=== PATIENT | male | born 1950 | race Caucasian/White ===

== ENCOUNTER 2018-03-14 07:57 | Outpatient (REF) | payer MEDICARE, BC, SELFPAY ==
[2018-03-14 14:02] LABS: Anion Gap 13.2 mmol/L (3-11); BUN 19 mg/dL (7-18); CO2 25.8 mmol/L (21.0-32.0); Calcium 8.9 mg/dL (8.5-10.1); Chloride 104 mmol/L (98-107); Glucose 104 mg/dL (70-100); Potassium 3.6 mmol/L (3.5-5.1); Sodium 143 mmol/L (136-145)
[2018-03-14 14:19] LABS: LDL CHOLESTEROL 89 mg/dL (<100)
[2018-03-15 09:18] LABS: PSA, Screening 0.7 ng/ml (0-4.5)
== END 2018-03-14 08:17 ==
LOC: NCHCN 07:57
PROVIDERS: PCP Family Medicine; Visit Provider Family Medicine
DX: I10 Essential (primary) hypertension (principal); E78.5 Hyperlipidemia, unspecified; R73.01 Impaired fasting glucose; Z12.5 Encounter for screening for malignant neoplasm of prostate
CPT/HCPCS: 80048; 83721; 84153

== ENCOUNTER 2018-03-18 06:28 | Day surgery (SDC) | payer MEDICARE, BC, SELFPAY ==
--- NOTE | 2018-03-17 15:24 | POEE_ITS ---
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 He is previously undergone vitrectomy and membrane peeling of the left eye in July 2012, followed by cataract extraction in December 2012. He also has a history of amblyopia of the right eye. He has developed a moderate nuclear cataract of the right eye with a myopic shift. The option of cataract surgery was offered to the patient and he wished to proceed. NOTE: The Chief Complaint, HPI, Past Medical History, Past Surgical History, Family History, Social History, Medications, and complete Ophthalmic Exam with detailed Assessment and Plan have already been documented in the patient's outpatient ophthalmic record and are not covered again in detail here. PFSH Nuclear sclerotic cataract of right eye (Acute) Primary open angle glaucoma (POAG) of left eye, mild stage (Chronic) History of vitrectomy (Chronic) Status post cataract extraction and insertion of intraocular lens of left eye ( Chronic 12/20/12) Medical History Nuclear sclerotic cataract of right eye (Acute) Primary open angle glaucoma (POAG) of left eye, mild stage (Chronic) Social History Smoking/Tobacco Use Status: Never Surgical History History of vitrectomy (Chronic) Status post cataract extraction and insertion of intraocular lens of left eye ( Chronic 12/20/12) Social History Smoking/Tobacco Use Status: Never Meds Home Medications Medication Instructions Recorded Confirmed Type amlodipine 5 mg PO HS 12/19/12 03/14/18 History aspirin [Aspir 81] 81 mg PO HS 12/19/12 03/14/18 History finasteride 5 mg PO HS 12/19/12 03/14/18 History glucosamine godwin 2KCl-chondroit 2 ea PO DAILY 12/19/12 03/14/18 History [Glucosamine & Chondroitin Cap] hydrocortisone 1 applic TOPICAL BID PRN 12/19/12 07/20/17 History omeprazole [Prilosec] 20 mg PO DAILY 12/19/12 03/14/18 History simvastatin 20 mg PO HS 12/19/12 03/14/18 History brimonidine-timolol [Combigan 1 drp OS BID 07/20/17 03/14/18 History 0.2%-0.5% Eye Drops] ibuprofen 200 - 600 mg PO TID 03/14/18 03/14/18 History losartan-hydrochlorothiazide 1 tab PO DAILY 03/14/18 03/14/18 History Allergies Allergy/AdvReac Type Severity Reaction Status Date / Time No Known Allergies Allergy Unverified 07/20/17 11:09 Exam OCULAR EXAM:: Most recent ophthalmic examination is significant for best corrected visual acuity of 20/40 right eye, 20/25 left eye. Intraocular pressure is 17 OD, 16 OS. Extraocular motility is normal. Slit-lamp examination is significant for a moderate nuclear cataract of 2+ sclerosis in the right eye. There is a well-positioned PCIOL in the left eye with clear posterior capsule. Funduscopic examination reveals disc cupping of 0.7 OD 0.8 OS. The right optic nerve has good color. The left optic nerve has a thin superior and inferior temporal rim with some pallor. Peripheral retina and vitreous is normal. BRIGHTNESS ACUITY TESTING (BAT):: Not performed Assessment and Plan (1) Nuclear sclerotic cataract of right eye: Current visit: No Status: Acute Assessment: Visually significant cataract, right eye. Plan: Cataract extraction with intraocular lens implantation, right eye Note: NOTE:: The details of the planned surgery, including the risks, indications, limitations,expectations,outcome and possible complications were explained to the patient. The patient understands the complications including, but not limited to: infection, hemorrhage, posterior dislocation of the lens or nuclear fragments which may require the intervention of a vitreoretinal surgeon, possible loss of the eye, or from anesthetic complications. The patient has been made aware of the option of not having surgery, that vision following surgery may not be equal to that prior to surgery, and that the planned surgery may not achieve the intended results. Following this discussion, which the patient appeared to understand, the patient wishes to proceed with cataract surgery with lens implantation of the affected eye to improve and maximize vision.
[2018-03-18 06:45] VITALS: BP 147/94; PULSE 68; RESP 16; TEMP 35.9; O2SAT 98
[2018-03-18] MEDS: Tropicam./Phenyleph. (1/2.5%) 5 ML BTL OD ×3 (07:00→07:09)
[2018-03-18] MEDS: Tetracaine 0.5% 4 ML BTL OD ×4 (07:00→07:29)
[2018-03-18] MEDS: Povidone-Iodine Ophth 30 ML BTL (07:29)
[2018-03-18] MEDS: Lidocaine 2% Jelly 6 ML SYR (07:29)
[2018-03-18] MEDS: Lidocaine 1% Pres-Free 5 ML VIAL (07:29)
[2018-03-18] MEDS: Balanced Salt Soln.-PLUS 500 ML BAG (07:44)
--- NOTE | 2018-03-18 07:59 | W.PM.DSUDISC ---
Discharge Plan Discharge Details Reason For Visit: CATARACT OD Attending Provider: Jack Payne Primary Care Provider: Abel Rosado [place] Meds and New Rx's Prescriptions: No Action aspirin [Aspir-81] 81 MG tablet,delayed release (DR/EC) 81 mg PO HS RF: 0 amlodipine 10 MG tablet 5 mg PO HS RF: 0 simvastatin 20 MG tablet 20 mg PO HS RF: 0 omeprazole [Prilosec] 20 MG capsule,delayed release(DR/EC) 20 mg PO DAILY RF: 0 hydrocortisone 30 GM cream 1 applic Topical BID PRNRF: 0 finasteride 5 MG tablet 5 mg PO HS RF: 0 glucosamine godwin 2KCl-chondroit [Glucosamine Sulf-Chondroitin] 1 EACH capsule 2 ea PO DAILY RF: 0 ibuprofen 200 mg Capsule 200 - 600 mg PO TID RF: 0 losartan-hydrochlorothiazide 100-12.5 mg Tablet 1 tab PO DAILY RF: 0 brimonidine-timolol [Combigan] 10 ML drops 1 drp OS BID RF: 0 Discharge Instructions Stand Alone Forms: Post-op Topical Cataract, Harry Valderrama (DSHanny) DS: Diagnosis Discharge Diagnosis (1) Nuclear sclerotic cataract of right eye: Status: Resolved (2) Status post cataract extraction and insertion of intraocular lens of right eye: Status: Chronic
--- NOTE | 2018-03-18 07:59 | W.PM.OP ---
Date of service: 03/18/18 Time of Service: 08:00 Operative Note DATE OF PROCEDURE: 03/18/18 PRE-OP DIAGNOSIS: Cataract, right eye POST-OP DIAGNOSIS: same SURGEON: Jack Payne ANESTHESIA: MAC and local (sub-tenon's anesthetic infiltration) PATHOLOGY: none sent COMPLICATIONS: None Patient was transported to: same day Patient's condition: stable Implants: Marty [employer] Marty [employer] / [employer] Tecnis [id number] Indications: Progressive decreased vision due to cataract, right eye Procedure Description: CATARACT SURGERY OPERATIVE REPORT PREOPERATIVE DIAGNOSIS: Nuclear cataract, right eye POSTOPERATIVE DIAGNOSIS: Same OPERATION: Cataract extraction using phacoemulsification with posterior chamber intraocular lens implant, right eye. IOL: IOL Medical Data Entry Clerk/Model: J&J Vision / BRIDGER Tecnis ZCB00 IOL Power: + 18.50 diopters IOL Serial Number: [id number] Optic Diameter: 6.0mm Haptic/Overall Diameter: 13.0mm PHACO INFO: Damian [employer]urion Vision System with OZil and Active Fluidics Cumulative Dispersed Energy (CDE): 10.03 seconds SURGEON: Jack Payne MD, DAFNE ANESTHESIA: Monitored Anesthesia Care (MAC), with local sub-tenon's anesthetic infiltration COMPLICATIONS: None SPECIMENS: None INDICATIONS FOR PROCEDURE: The patient is a 67-year-old male with history of vitrectomy and membrane peeling of the left eye in 2012 with subsequent cataract surgery. He is now being treated for a glaucoma in the left eye. He has developed a moderate nuclear cataract in the right eye and desires cataract surgery there and attempt to improve and maximize his vision. PROCEDURE: The correct surgical eye was identified and marked as the right eye and the pupil was dilated in the preoperative area using mydriatics and cycloplegics. The dilated pupil size was 7.0 mm. Oral sedation was administered in the form of an Imprimis MKO Melt (midazolam 3mg/ketamine 25mg/ondansetron 2mg). The patient was brought to the operating room where cardiopulmonary monitoring was instituted and surgical time-out was performed, confirming the correct operative eye and IOL power. Topical anesthesia was administered and ophthalmic povidone-iodine 5% was instilled into the conjunctival fornices. Lidocaine gel was applied to the cornea and the melecio-ocular area was prepped with Betadine 10% solution and draped in the usual sterile fashion for intraocular surgery, including an aperture drape. A Tegaderm transparent film dressing was cut in half and used to cover the lashes and lid margins. Care was taken to sequester the lashes and lid margins under the Tegaderm dressing. A lid speculum was placed between the lids of the operative eye and the Trini-Jere operating microscope was maneuvered into position. Munir scissors were then used to make a conjunctival buttonhole approximately 6mm posterior to the limbus in the inferonasal quadrant. Blunt dissection was carried out to expose bare sclera, and a blunt-tipped sub-tenon?s anesthesia cannula was introduced and passed posteriorly along the globe where non-preserved plain lidocaine was injected into posterior sub-Tenon?s space. A sideport knife was used to make a paracentesis port at the 7:00 postion and the anterior chamber was filled with Healon GV. A 2.4mm keratome knife was used to create a half-thickness groove at the limbus and then to construct a three-plane near-clear corneal tunnel extending 2.0mm into clear cornea at the 10:00 position. A flap was raised on the anterior capsule and capsulorhexis forceps were used to complete a continuous curvilinear capsulorhexis of 5.5 mm. Balanced salt solution was then used to perform cortical cleaving hydrodissection and nuclear hydrodelineation until the lens could be freely rotated within the capsular bag. The lens nucleus was then disassembled and removed within the capsular bag and iris plane using phacoemulsification. Residual cortical material was removed using the 45-degree angled silicone I/A tip with 0.3mm port. The posterior capsule was carefully polished to remove as much residual lens epithelial cells as safely possible. The capsular bag was then inflated and the anterior chamber deepened with viscoelastic. The lens implant described above was inserted into the capsular bag using the BRIDGER [place] Injector. A Kuglen hook was used to dial the IOL into position. Residual viscoelastic was then removed first from posterior to the IOL, then from the anterior chamber using the I/A handpiece. The lens implant was noted to center nicely within the capsular bag. The incisions were stromally hydrated, and the anterior chamber was reformed using BSS. Then 0.4cc of moxifloxacin 1.5mg/ml were injected into the capsular bag and anterior chamber. The incisions were checked with a Weck spear and found to be secure. Several drops of ophthalmic povidone-iodine 5% were then applied to the eye followed by two drops of Imprimis combination moxifloxacin/dexamethasone solution. The drapes were removed and a clear plastic protective eye shield was placed over the eye. The patient was then returned to Same Day Surgery in stable condition.
--- NOTE | 2018-03-18 08:02 | ROE_ITS ---
Date of service: 03/18/18 Time of Service: 08:00 Operative Note DATE OF PROCEDURE: 03/18/18 PRE-OP DIAGNOSIS: Cataract, right eye POST-OP DIAGNOSIS: same SURGEON: Jack Payne ANESTHESIA: MAC and local (sub-tenon's anesthetic infiltration) PATHOLOGY: none sent COMPLICATIONS: None Patient was transported to: same day Patient's condition: stable Implants: Marty and Marty Vision / [employer] Tecnis [id number] Indications: Progressive decreased vision due to cataract, right eye Procedure Description: CATARACT SURGERY OPERATIVE REPORT PREOPERATIVE DIAGNOSIS: Nuclear cataract, right eye POSTOPERATIVE DIAGNOSIS: Same OPERATION: Cataract extraction using phacoemulsification with posterior chamber intraocular lens implant, right eye. IOL: IOL Chief Nurse Executive/Model: J&J Vision / BRIDGER Tecnis ZCB00 IOL Power: + 18.50 diopters IOL Serial Number: [id number] Optic Diameter: 6.0mm Haptic/Overall Diameter: 13.0mm PHACO INFO: Damian [employer]urion Vision System with OZil and Active Fluidics Cumulative Dispersed Energy (CDE): 10.03 seconds SURGEON: Jack Payne MD, DAFNE ANESTHESIA: Monitored Anesthesia Care (MAC), with local sub-tenon's anesthetic infiltration COMPLICATIONS: None SPECIMENS: None INDICATIONS FOR PROCEDURE: The patient is a 67-year-old male with history of vitrectomy and membrane peeling of the left eye in 2012 with subsequent cataract surgery. He is now being treated for a glaucoma in the left eye. He has developed a moderate nuclear cataract in the right eye and desires cataract surgery there and attempt to improve and maximize his vision. PROCEDURE: The correct surgical eye was identified and marked as the right eye and the pupil was dilated in the preoperative area using mydriatics and cycloplegics. The dilated pupil size was 7.0 mm. Oral sedation was administered in the form of an Imprimis MKO Melt (midazolam 3mg/ketamine 25mg/ ondansetron 2mg). The patient was brought to the operating room where cardiopulmonary monitoring was instituted and surgical time-out was performed, confirming the correct operative eye and IOL power. Topical anesthesia was administered and ophthalmic povidone-iodine 5% was instilled into the conjunctival fornices. Lidocaine gel was applied to the cornea and the melecio-ocular area was prepped with Betadine 10% solution and draped in the usual sterile fashion for intraocular surgery, including an aperture drape. A Tegaderm transparent film dressing was cut in half and used to cover the lashes and lid margins. Care was taken to sequester the lashes and lid margins under the Tegaderm dressing. A lid speculum was placed between the lids of the operative eye and the Trini-Jere operating microscope was maneuvered into position. Munir scissors were then used to make a conjunctival buttonhole approximately 6mm posterior to the limbus in the inferonasal quadrant. Blunt dissection was carried out to expose bare sclera, and a blunt-tipped sub-tenon? s anesthesia cannula was introduced and passed posteriorly along the globe where non-preserved plain lidocaine was injected into posterior sub-Tenon?s space. A sideport knife was used to make a paracentesis port at the 7:00 postion and the anterior chamber was filled with Healon GV. A 2.4mm keratome knife was used to create a half-thickness groove at the limbus and then to construct a three-plane near-clear corneal tunnel extending 2.0mm into clear cornea at the 10:00 position. A flap was raised on the anterior capsule and capsulorhexis forceps were used to complete a continuous curvilinear capsulorhexis of 5.5 mm. Balanced salt solution was then used to perform cortical cleaving hydrodissection and nuclear hydrodelineation until the lens could be freely rotated within the capsular bag. The lens nucleus was then disassembled and removed within the capsular bag and iris plane using phacoemulsification. Residual cortical material was removed using the 45-degree angled silicone I/A tip with 0.3mm port. The posterior capsule was carefully polished to remove as much residual lens epithelial cells as safely possible. The capsular bag was then inflated and the anterior chamber deepened with viscoelastic. The lens implant described above was inserted into the capsular bag using the BRIDGER [place] Injector. A Kuglen hook was used to dial the IOL into position. Residual viscoelastic was then removed first from posterior to the IOL, then from the anterior chamber using the I/A handpiece. The lens implant was noted to center nicely within the capsular bag. The incisions were stromally hydrated , and the anterior chamber was reformed using BSS. Then 0.4cc of moxifloxacin 1.5mg/ml were injected into the capsular bag and anterior chamber. The incisions were checked with a Weck spear and found to be secure. Several drops of ophthalmic povidone-iodine 5% were then applied to the eye followed by two drops of Imprimis combination moxifloxacin/dexamethasone solution. The drapes were removed and a clear plastic protective eye shield was placed over the eye. The patient was then returned to Same Day Surgery in stable condition.
[2018-03-18 08:40] VITALS: BP 149/88; PULSE 73; RESP 14; TEMP 36.9; O2SAT 92
== END 2018-03-18 08:35 | disposition home or self-care (01) ==
LOC: SUR 06:28
PROVIDERS: PCP Family Medicine; Visit Provider Ophthalmology
PROC: (CPT 66984; principal; 2018-03-18 07:30)
DX: H25.11 Age-related nuclear cataract, right eye (principal); I10 Essential (primary) hypertension; K21.9 Gastro-esophageal reflux disease without esophagitis
CPT/HCPCS: 66984; V2632

== ENCOUNTER 2019-02-26 14:10 | Outpatient (REF) | payer MEDICARE, BC, SELFPAY ==
[2019-02-26 15:31] LABS: Anion Gap 8.5 mmol/L (3-11); BUN 16 mg/dL (7-18); CO2 30.5 mmol/L (21.0-32.0); CREATININE 1.04 mg/dL (0.70-1.30); Chloride 107 mmol/L (98-107); Glucose 105 mg/dL (70-100); LDL CHOLESTEROL 91 mg/dL (<100); Potassium 4.6 mmol/L (3.5-5.1); Sodium 146 mmol/L (136-145)
[2019-02-26 15:59] LABS: Hemoglobin A1C 5.4 % (4.5-6.2)
== END 2019-02-26 14:30 ==
LOC: NCHCN 14:10
PROVIDERS: PCP Family Medicine; Visit Provider Family Medicine
DX: I10 Essential (primary) hypertension (principal); R73.01 Impaired fasting glucose; E78.5 Hyperlipidemia, unspecified
CPT/HCPCS: 80048; 83721; 83036

== ENCOUNTER 2020-03-01 07:49 | Outpatient (REF) | payer MEDICARE, BC, SELFPAY ==
[2020-03-01 20:30] LABS: Anion Gap 5.6 mmol/L (3-11); BUN 16 mg/dL (7-18); CO2 32.4 mmol/L (21.0-32.0); CREATININE 0.99 mg/dL (0.70-1.30); Calcium 8.8 mg/dL (8.5-10.1); Chloride 105 mmol/L (98-107); Glucose 92 mg/dL (74-106); Potassium 3.9 mmol/L (3.5-5.1); Sodium 143 mmol/L (136-145)
== END 2020-03-01 08:09 ==
LOC: NCHCN 07:49
PROVIDERS: PCP Family Medicine; Visit Provider Family Medicine
DX: I10 Essential (primary) hypertension (principal)
CPT/HCPCS: 80048

== ENCOUNTER 2021-03-07 18:05 | Outpatient (REF) | payer MEDICARE, BC, SELFPAY ==
[2021-03-07 16:51] LABS: Hemoglobin A1C 5.4 % (<5.7)
[2021-03-07 17:06] LABS: Vitamin D 25 Total 46.5 ng/mL (30-100)
[2021-03-07 17:08] LABS: Anion Gap 8.2 mmol/L (3-11); BUN 20 mg/dL (7-18); CO2 31.8 mmol/L (21.0-32.0); CREATININE 1.1 mg/dL (0.70-1.30); Calculated LDL 82 mg/dL (<100); Chloride 105 mmol/L (98-107); Cholesterol 133 mg/dL (<200); Glucose 105 mg/dL (74-106); HDL Cholesterol 38 mg/dL (40-60); Potassium 4.1 mmol/L (3.5-5.1); Sodium 145 mmol/L (136-145); Triglyceride 65 mg/dL (<150)
== END 2021-03-07 18:06 | disposition home or self-care (01) ==
LOC: NCHCN 18:05
PROVIDERS: PCP Family Medicine; Visit Provider Family Medicine
DX: I10 Essential (primary) hypertension (principal); R73.01 Impaired fasting glucose; E55.9 Vitamin D deficiency, unspecified; E78.5 Hyperlipidemia, unspecified
CPT/HCPCS: 80048; 80061; 82306; 83036

== ENCOUNTER 2021-11-23 16:53 | Outpatient (REF) | payer MEDICARE, BC, SELFPAY ==
--- NOTE | 2021-11-23 16:10 | SKI_PTH ---
PATIENT: Hunter Wood LOC: [facility]#:[id number] AGE/SX: 71/M ROOM: RE11/23/[address]: Clayton Matthew : 1950 BED: DIS: 11/23/2021 SPEC #: [id number] RECD: 11/23/21 18:37 STATUS: RICHI REQ #: [id number] ELEANOR: 11/23/21 16:[address]: Clayton Matthew DEPT: Surgical Specimen RECD BY: Kenya May ENTERED: 11/23/21 18:37 SP TYPE: PAVEL MCCULLOUGH DR: Abel Rosado Tissues: 1 - SKIN BIOPSY(SHAVE/PUNCH) Procedures: SKIN LEVEL 4 Comments: [id number]
== END 2021-11-23 16:54 | disposition home or self-care (01) ==
LOC: NCHCN 16:53
PROVIDERS: PCP Family Medicine; Visit Provider Physician Assistant
DX: L30.8 Other specified dermatitis (principal)
CPT/HCPCS: 88305

== ENCOUNTER → 2021-12-23 09:46 | Outpatient (BNVA) | payer MEDICARE, BC, SELFPAY | PROVIDERS: PCP Family Medicine; Referring Provider Family Medicine; Visit Provider Surgery | DX: Z12.11 Encounter for screening for malignant neoplasm of colon (principal) ==

== ENCOUNTER 2022-01-09 07:38 | Day surgery (SDC) | payer MEDICARE, BC, SELFPAY ==
--- NOTE | 2022-01-09 06:41 | W.COLOREPORT ---
Colonoscopy Report Date of procedure: 01/09/22 Pre-op diagnosis general: Colon Cancer Screening Post-op diagnosis procedure note: other (polyps and diverticulosis) Procedure: Colonoscopy with polypectomy Surgeon: Marylin Coleman Anesthesia Type: General:No Airway Estimated blood loss (mL): 3 Pathology: other (ascending x1, transverse x1 and rectal polyps x2) Complications: None Disposition: same day Indications: The patient? is a pleasant 71-year-old male who is here to discuss another screening colonoscopy. ? His last colonoscopy was in 2011 and was normal.? He denies any changes in bowel habits, melena, hematochezia, unintentional weight loss or family history of colon cancer.? The procedure and risks were discussed.? The prep was reviewed in detail.? Risks, benefits and complications have been reviewed. Complications include but are not limited to bleeding, pain, perforation, missed small lesion/polyp, sore throat, aspiration and adverse reaction to the medications. Questions were entertained and answered to their satisfaction and they wished to proceed. No guarantees were given or implied. Prep: Miralax/Dulcolax Procedure Start Time: : Procedure End Time: : Retraction Time: 8 minutes Findings: 4 small polyps mild sigmoid diverticulosis Procedure Description: After informed consent was obtained the patient was taken to the procedure room and placed in a left decubitous position. Monitors were applied and a time out was done. The patients name, date of , procedure, allergies to medications and metal in their body was reviewed. The patient was then sedated. Once sedated and comfortable a rectal exam was done. External exam was normal. Internal exam revealed a normal sphincter tone and no palpable masses. The prostate felt smooth and enlarged. The scope was then introduced and retro-flexed. No internal hemorrhoids, polyps or masses were identified on retro-flexion. The scope was then advanced to the cecum without difficulty. The ileocecal vlave and appendiceal orifice were identified. The prep was good. The scope was then slowly retracted over 8 minutes back into the rectum. Polyps were removed at with cold forceps in the ascending colon x1, transverse x1 and rectum x2. There was mild sigmoid diverticulosis noted. The scope was removed and the patient was woken up and taken back to Same day surgery in stable condition. The patient tolerated the procedure well and there were no immediate complications. Follow up: The patient should follow up in 5 years unless they develop changes in bowel habits or other new gastrointestinal complaints.
--- NOTE | 2022-01-09 06:42 | W.PM.DSUDISC ---
Discharge Plan Disposition Patient Disposition: HOME Condition: Good Discharge Details Reason For Visit: colonoscopy Attending Provider: Marylin Coleman Primary Care Provider: Abel Rosado Home Meds and New Rx's Prescriptions: Continued amlodipine 10 mg tablet 10 mg PO HS losartan-hydrochlorothiazide 100-25 mg tablet 1 tab PO DAILY fluocinonide 0.05 % solution 1 applic topical BID simvastatin 20 MG tablet 20 mg PO HS omeprazole [Prilosec] 20 MG capsule,delayed release(DR/EC) 20 mg PO DAILY hydrocortisone 30 GM cream 1 applic Topical BID PRN finasteride 5 MG tablet 5 mg PO HS Glucosamine Sulf-Chondroitin 1 EACH capsule 2 ea PO DAILY ibuprofen 200 mg Capsule 200 - 600 mg PO TID brimonidine-timolol [Combigan] 10 ML drops 1 drp OS BID Discontinued bisacodyl [Dulcolax (bisacodyl)] 5 mg tablet,delayed release (DR/EC) 5 mg PO ONCE Qty: 4 0RF polyethylene glycol 3350 17 gram/dose powder 17 g PO ONCE Qty: 238 0RF Discharge Instructions Instructions: Colorectal Polyps (DC), Diverticulosis (DC) Additional Instructions: Findings: 4 small polyps and diverticlosis Follow up: 5 years Please call if you develop: fevers >101.5 Nausea or Vomiting Abdominal pain that is not transient Rectal bleeding that is more then a tbsp A hard abdomen and inability to pass gas DAY SURGERY UNIT POST ENDOSCOPY INSTRUCTIONS Instructions for everyone who is given Anesthesia: For your safety, please do the following for the next 24 Hours: a. Do not drive or operate dangerous equipment b. Do not drink alcohol beverages or use any recreational drugs for the first 24 hours or while taking pain medications. The medications in your body may have a reaction that can be dangerous. c. Do not make any important decisions or sign any important papers 1. Generally there are no restrictions on your activity after a day or so has gone by, but you may feel a bit fatigued for a few days. 2. After you arrive home you may have a light meal and return to a normal diet as you can tolerate it without feeling sick to your stomach. 3. After surgery, you may feel pain or discomfort. This should be only transient, but if it persists please contact your doctor. 4. If there are any questions regarding the findings of your procedure, please feel free to contact your doctor. 6. If you are unable to contact your doctor with a problem, contact the hospital at [phone]. 7. Continue all your regular medications unless directed otherwise. I understand the above instructions and have no questions. Signature of Patient or Responsible Adult Escort Date/Time Name of Responsible Adult Escort Signature of Nurse Date/Time Activity:: Activity as Tolerated Diet:: high fiber diet Discharge Orders Discharge Orders: Discharge Order (Routine); Ordered 01/09/22 Ordered By: Marylin Coleman
[2022-01-09 08:11] VITALS: BP 108/78; PULSE 72; RESP 16; TEMP 36.3; O2SAT 98
--- NOTE | 2022-01-09 08:25 | ANES.PREOP_ITS ---
General Info Date of Service Date Performed: 01/09/22 Height: 5 ft 5 in Weight: 80.6 kg Body Mass Index (BMI): 29.5 Surgical Procedure: Operation Date: 01/09/22 09:50 Proposed Procedure Side Surgeon osbaldo Coleman MD Meds Allergies and Home Medications Allergies Allergy/AdvReac Type Severity Reaction Status Date / Time No Known Allergies Allergy Verified 01/09/22 08:17 Home Medication Medication Instructions Recorded finasteride 5 mg tablet 5 mg PO HS 12/19/12 glucosamine sulfate dipotassium Cl 2 ea PO DAILY 12/19/12 500 mg-chondroitin 400 mg capsule (Glucosamine Sulfate 2 KCL-Chondroitin) hydrocortisone 2.5 % topical cream 1 applic topical BID PRN 12/19/12 omeprazole 20 mg capsule,delayed 20 mg PO DAILY 12/19/12 release (Prilosec) simvastatin 20 mg tablet 20 mg PO HS 12/19/12 brimonidine 0.2 %-timolol 0.5 % 1 drp OS BID 07/20/17 eye drops (Combigan) ibuprofen 200 mg capsule 200 - 600 mg PO TID 03/14/18 amlodipine 10 mg tablet 10 mg PO HS 03/31/21 fluocinonide 0.05 % topical 1 applic topical BID 03/31/21 solution losartan 100 1 tab PO DAILY 03/31/21 mg-hydrochlorothiazide 25 mg tablet bisacodyl 5 mg tablet,delayed 5 mg PO ONCE #4 tabs 12/23/21 release (Dulcolax (bisacodyl)) polyethylene glycol 3350 17 17 g PO ONCE #238 grams 12/23/21 gram/dose oral powder Current Visit Medications: Current Medications Generic Name Dose Route Start Last Admin Trade Name Freq PRN Reason Stop Dose Admin Hyoscyamine Sulfate 0.125 mg 01/09/22 06:42 Hyoscyamine 0.125 Mg Sl/Oral/Chew SL DIRECTED PRN Ringer's Solution 1,000 mls @ 80 mls/hr 01/09/22 06:00 IV 02/05/22 23:59 [facility]ION [facility] IV Miscellaneous Supplies 1 each 01/09/22 06:00 Iv Access IV 02/05/22 23:59 DIRECTED MAGDALENO Ondansetron HCl 4 mg 01/09/22 06:42 Ondansetron 4 Mg/2 Ml Vial IVP Q4H PRN PRN Nausea / Vomiting Sodium Chloride 0 ml 01/09/22 06:00 Normal Saline Flush 10 Ml Syr IV 02/05/22 23:59 PRN PRN Sodium Chloride 0 ml 01/09/22 06:00 Normal Saline 10 Ml Vial IJ 02/05/22 23:59 DIRECTED PRN Sterile Water 0 ml 01/09/22 06:00 Water,Injection,Sterile 10 Ml Vial IJ 02/05/22 23:59 DIRECTED PRN PFSH Active Problems Active Problems: Problem Status Onset Code Screening for colon cancer Z12.11 Hypertension I10 Impaired fasting glucose R73.01 Osteoarthritis of knees, bilateral M17.0 BMI 32.0-32.9,adult Z68.32 GERD (gastroesophageal reflux disease) K21.9 Psoriasis L40.9 Vitamin D deficiency E55.9 Medical History Medical History (Updated 01/09/22 @ 08:19 by Octavia Do RN) ACL (anterior cruciate ligament) tear BPH (benign prostatic hyperplasia) History of shingles Hyperlipidemia Nuclear sclerotic cataract of right eye Primary open angle glaucoma (POAG) of left eye, mild stage Sacral back pain Surgical History Surgical History History of vitrectomy Status post cataract extraction and insertion of intraocular lens of left eye (12/20/12) Status post cataract extraction and insertion of intraocular lens of right eye (03/18/18) Tobacco Smoking/Tobacco Use Status: Never Alcohol Alcohol Intake: current Alcohol intake frequency: a few times a week Alcohol type: beer Substance Use Substance use: Never Substance use type: does not use Vital Signs and Lab Results Vital Signs Most Recent Vital Signs in EMR: Most Recent Vital Signs Temp Pulse Resp BP Pulse Ox 36.3 C L 72 16 108/78 98 01/09/22 08:11 01/09/22 08:11 01/09/22 08:11 01/09/22 08:11 01/09/22 08:11 Lab Results Blood Type / Crossmatch: No Data to Display Complete Blood Count: No Data to Display Complete Metabolic Panel: No Data to Display Liver Function Panel: No Data to Display Coagulation Panel: No Data to Display Cardiac Panel: No Data to Display Arterial Blood Gas: No Data to Display Venous Blood Gas: No Data to Display Pancreas Panel: No Data to Display Thyroid Panel: No Data to Display Infectious Disease: No Data to Display Blood Cultures: No Data to Display Toxicology Panel: No Data to Display Anesthesia Assessment and Plan Anesthesia History Personal History: No History of Anesthesia Complications Family History: No Family History of Anesthesia Complications Exercise Tolerance Exercise Tolerance: Metabolic Equivalents>4 Pertinent Negatives Pertinent Negatives: No Symptoms of GERD (Controlled with meds), No Major Cardiovascular Symptoms or Complaints, No Major Pulmonary Symptoms or Complaints and No History of CVA/TIA Cardiac & Pulmonary Exam Cardiac Exam: Normal S1/S2 Heart Sounds Pulmonary Exam: Clear Bilateral Breath Sounds Implantable Cardiac Device Does patient have a Pacemaker or an ICD?: No Airway Exam Known Difficult Airway: No Mallampati Class: 3 Mouth Opening: Normal (> 3cm) Thyromental Distance: Greater than 3 cm Neck Range of Motion: Full ROM Neck Circumference: Normal Teeth Condition: Normal Dentition ASA Classification ASA Score: ASA 2 Emergency Case?: No NPO Status NPO Status: NPO Clears >2 hours, Solids >8 hours Anesthesia Plan Resuscitation Status: Full Code Anesthesia Technique: General Anesthesia Airway Planned: Natural Airway Monitors Used: Standard Monitors
[2022-01-09] MEDS: Lactated Ringers 1,000 ML 80 ML IV (08:33)
[2022-01-09 08:54] VITALS: BMI 29.5
--- NOTE | 2022-01-09 09:11 | BOWEL_PTH ---
PATIENT: Hunter Wood LOC: [facility] U#:[id number] AGE/SX: 71/M ROOM: RE01/09/[address]: Marylin Coleman MD : [id number] BED: DIS: 01/09/2022 SPEC #: [id number] RECD: 01/09/22 12:25 STATUS: RCIHI REQ #: [id number] ELEANOR: 01/09/22 09:[address]: Marylin Coleman DEPT: Surgical Specimen RECD BY: Kenya May ENTERED: 01/09/22 12:26 SP TYPE: Bowel OTHR DR: Abel Rosado Tissues: 1 - BIOPSY BOWEL 2 - BIOPSY BOWEL 3 - BIOPSY BOWEL Procedures: GROSS AND MICRO LEVEL 4 Comments: [id number]
[2022-01-09 09:29] VITALS: BP 114/68; PULSE 66; RESP 16; TEMP 36.2; O2SAT 94
--- NOTE | 2022-01-09 09:47 | W.ANESPOSTOP ---
Postoperative Evaluation Date, Time and Location Date Performed: 01/09/22 Time Performed: : Patient Location: Day Surgery Unit Vital Signs Most Recent Imported Vital Signs: Most Recent Vital Signs Temp Pulse Resp BP Pulse Ox 36.2 C L 66 16 114/68 94 01/09/22 09:29 01/09/22 09:29 01/09/22 09:29 01/09/22 09:01/09/22 09:29 Pain Score Most Recent Pain Score: Most Recent Pain Score Pain Level 0 01/09/22 09:29 Assessment Mental Status: Awake (Alert & Oriented to Patient Baseline) Airway and Respiratory Function: Patent airway with normal (patient baseline) respiratory exam Cardiovascular Function: Hemodynamically Stable Hydration Status: Adequately Hydrated Nausea & Vomiting: No Nausea or Vomiting Pain: Pt. Denies Any Pain Peripheral Nerve Block: Patient did not receive a nerve block
[2022-01-09 10:05] VITALS: BP 136/85; PULSE 62; RESP 16; TEMP 36.3; O2SAT 96
== END 2022-01-09 10:23 | disposition home or self-care (01) ==
PROVIDERS: PCP Family Medicine; Visit Provider Surgery
PROC: 0DJD8ZZ Inspection of Lower Intestinal Tract, Via Natural or Artificial Opening Endoscopic (ICD-10-PCS; CPT 45378; principal; 2022-01-09 09:45)
DX: Z12.11 Encounter for screening for malignant neoplasm of colon (principal); K63.5 Polyp of colon; K57.30 Diverticulosis of large intestine without perforation or abscess without bleeding; K62.1 Rectal polyp; K63.89 Other specified diseases of intestine
CPT/HCPCS: 45380; 88305

== ENCOUNTER 2022-03-16 16:00 | Outpatient (REF) | payer MEDICARE, BC, SELFPAY ==
[2022-03-16 16:04] LABS: Abs Immature Grans 0.03 10^3/uL (0.0-0.06); Absolute Basophil Count 0.04 10^3/uL (0.0-0.2); Absolute Eosinophil Count 0.11 10^3/uL (0.0-0.7); Absolute Monocyte Count 0.63 10^3/uL (0.1-0.8); Absolute Neutrophil Count 5.89 10^3/uL (1.2-6.7); Basophils % 0.5; Eosinophils % 1.4; HCT 48.4 % (40.0-50.0); HGB 16.2 g/dL (13.5-17.5); Immature Grans % 0.4; Lymphocytes % 16.3; MCH 28.6 pg (27.0-33.0); MCHC 33.5 % (32.0-36.0); MCV 85 fL (80-95); MPV 10.3 fL (8.0-11.0); Monocytes % 7.9; Neutrophils % 73.5; Platelet Count 229 10^3/uL (130-400); RBC 5.67 10^6/uL (4.36-5.78); RDW 12.9 % (11.8-14.1); RDW-SD 39.8 fL
[2022-03-16 16:25] LABS: ALT 20 U/L (16-63); AST 15 U/L (15-37); Albumin 3.7 g/dL (3.4-5.0); Alkaline Phosphatase 87 U/L (46-116); Anion Gap 4.1 mmol/L (3-11); BUN 22 mg/dL (7-18); Bilirubin, Total 0.5 mg/dL (0.2-1.0); CO2 33.9 mmol/L (21.0-32.0); CREATININE 1.1 mg/dL (0.70-1.30); Calcium 9.2 mg/dL (8.5-10.1); Calculated LDL 92 mg/dL (<100); Chloride 103 mmol/L (98-107); Cholesterol 149 mg/dL (<200); Estimated GFR 70.88 (mL/min/1.73m2); Glucose 111 mg/dL (74-106); HDL Cholesterol 42 mg/dL (40-60); Sodium 141 mmol/L (136-145); Total Protein 6.8 g/dL (6.4-8.2); Triglyceride 76 mg/dL (<150)
[2022-03-16 16:46] LABS: Vitamin D 25 Total 42.2 ng/mL (30-100)
== END 2022-03-16 16:01 | disposition home or self-care (01) ==
LOC: NCHCN 16:00
PROVIDERS: PCP Family Medicine; Visit Provider Family Medicine
DX: Z00.00 Encounter for general adult medical examination without abnormal findings (principal)
CPT/HCPCS: 80053; 80061; 82306; 85025

== ENCOUNTER 2022-03-20 13:25 | Outpatient (REF) | payer MEDICARE, BC, SELFPAY ==
[2022-03-20 15:08] LABS: Bilirubin Negative (Negative); Blood Negative (Negative); Clarity Clear (Clear); Glucose Negative (Negative); Ketones Negative (Negative); Leukocyte Esterase Negative (Negative); Nitrite Negative (Negative); Urobilinogen 0.2 EU/dL (Up TO 0.2)
== END 2022-03-20 13:26 | disposition home or self-care (01) ==
LOC: NCHCN 13:25
PROVIDERS: PCP Family Medicine; Visit Provider Family Medicine
DX: R10.9 Unspecified abdominal pain (principal)
CPT/HCPCS: 81003

== ENCOUNTER 2022-12-19 13:32 | Outpatient (REF) | payer MEDICARE, BC, SELFPAY ==
[2022-12-19 16:09] LABS: Anion Gap 4.2 mmol/L (3-11); BUN 15 mg/dL (7-18); CO2 32.8 mmol/L (21.0-32.0); CREATININE 0.9 mg/dL (0.70-1.30); Chloride 103 mmol/L (98-107); Estimated GFR 89.62 (mL/min/1.73m2); Glucose 94 mg/dL (74-106); Magnesium 1.9 mg/dL (1.8-2.4); Potassium 4.4 mmol/L (3.5-5.1); Sodium 140 mmol/L (136-145)
[2022-12-19 16:55] LABS: Hemoglobin A1C 5.3 % (<5.7)
== END 2022-12-19 13:33 | disposition home or self-care (01) ==
LOC: NCHCN 13:32
PROVIDERS: PCP Family Medicine; Visit Provider Family Medicine
DX: R73.03 Prediabetes (principal); I49.3 Ventricular premature depolarization; I10 Essential (primary) hypertension
CPT/HCPCS: 80048; 83036; 83735

== ENCOUNTER → 2023-04-17 19:42 | Outpatient (CLI) | payer MEDICARE, BC, SELFPAY ==
--- NOTE | 2023-04-17 | DI.RAD_ITS ---
Exam(s) XR CHEST 2V PA LATERAL EXAM: XR CHEST 2V PA LATERAL CLINICAL HISTORY: R05.3 Chronic cough TECHNIQUE: 2D digital imaging was performed. COMPARISON: CR CHEST 2 VIEWS PA,LAT from 05/02/2010 FINDINGS: HEART: Normal size. Aorta: Not dilated. PULMONARY VASCULATURE: Normal. LUNGS: Clear. PLEURAL SPACE: No pleural effusion or pneumothorax. BONE:Unremarkable for age. Soft tissues: Unremarkable. IMPRESSION: No acute abnormality. DATA REPOSITORY: RADIATION DOSE DELIVERED:
== END ==
PROVIDERS: PCP Family Medicine; Visit Provider Nurse Practitioner Family
DX: R05.9 Cough, unspecified (principal)
CPT/HCPCS: 71046

== ENCOUNTER → 2023-06-19 00:52 | Outpatient (CLI) | payer MEDICARE, BC, SELFPAY ==
--- NOTE | 2023-06-19 10:00 | DI.MRI_ITS ---
Exam(s) MR LUMBAR SPINE WO EXAM: MR LUMBAR SPINE WO CLINICAL HISTORY: LUMBAR RADICULOPATHY,M54.16, LT LEG PAIN,M79.605,NEUROGENIC CLAUDICATION,. TECHNIQUE: Multiplanar multisequence MRI of the Lumbar spine was performed. COMPARISON: CT UPPER ABD W/WO CONTRAST(P) from 09/17/2009 FINDINGS: Bones: The last intervertebral disc space is designated the L5/S1 level for the numbering purpose of this examination. The vertebral body heights are well maintained. There is a mild left convex lumba r scoliosis. There are endplate degenerative signal changes particularly at L5-S1. Endplate osteoph ytes are seen at multiple levels of the lumbar spine. There is L5 spondylolysis and grade 1 spondylo listhesis of L5 on S1. Cord: The conus tip ends at the T12 level. It is of normal size and signal intensity. T12-L1: No disc herniations or bulges are present. No central spinal canal or neural foraminal stenos is. L1-2: No disc herniations or bulges are present. No central spinal canal or neural foraminal stenosis . L2-3: There is a diffuse disc bulge. There are degenerative changes of the facets and hypertrophy of the ligamentum flavum. The findings do result in mild narrowing of the central spinal canal. No si gnificant neural foraminal stenosis is present. L3-4: There is a mild diffuse disc bulge. There are degenerative changes of the facets. No signific ant central spinal canal stenosis is present. There is mild bilateral neural foraminal stenosis. L4-5: There is a diffuse disc bulge. There are degenerative changes of the facets. Moderate narrowi ng of the central spinal canal is noted particularly in the transverse diameter. Moderately severe r ight and marked left neural foraminal stenosis is present. L5-S1: There is a diffuse disc bulge. There is a small annular tear seen posteriorly. There are deg enerative changes of the facets. No significant central spinal canal stenosis is present. There is marked bilateral neural foraminal stenosis, left greater than right. Soft tissues: The visualized SI joints and sacrum are well maintained. The paraspinal soft tissues ar e unremarkable. IMPRESSION: 1. Marked degenerative changes, diffuse disc bulge and small central annular tear at L5-S1 resulting in marked bilateral neural foraminal stenosis, left greater than right. 2. Degenerative changes at L4-5 resulting in moderate central spinal canal stenosis, moderately sever e right and marked left neural foraminal stenosis. 3. Degenerative changes at L2-3 and L3-L4 as described above. 4. 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 DATA REPOSITORY:
== END ==
PROVIDERS: PCP Family Medicine; Visit Provider Nurse Practitioner Family
DX: M51.25 Other intervertebral disc displacement, thoracolumbar region (principal)
CPT/HCPCS: 72148

== ENCOUNTER 2023-09-21 13:44 | Outpatient (REF) | payer MEDICARE, BC, SELFPAY ==
[2023-09-21 16:20] LABS: Hemoglobin A1C 5.5 % (<5.7)
[2023-09-21 22:49] LABS: PSA, Screening 3.6 ng/mL (<=6.5)
== END 2023-09-21 13:45 | disposition home or self-care (01) ==
LOC: NCHCN 13:44
PROVIDERS: PCP Family Medicine; Visit Provider Student in an Organized Health Care Education/Training Program
DX: R73.03 Prediabetes (principal); Z12.5 Encounter for screening for malignant neoplasm of prostate
CPT/HCPCS: 84153; 83036

== ENCOUNTER 2023-10-29 11:48 | Outpatient (REF) | payer MEDICARE, BC, SELFPAY ==
[2023-10-29 15:14] LABS: Abs Immature Grans 0.03 10^3/uL (0.0-0.06); Absolute Basophil Count 0.06 10^3/uL (0.0-0.2); Absolute Eosinophil Count 0.24 10^3/uL (0.0-0.7); Absolute Lymphocyte Count 1.32 10^3/uL (1.2-3.4); Absolute Monocyte Count 0.73 10^3/uL (0.1-0.8); Absolute Neutrophil Count 5.95 10^3/uL (1.2-6.7); Basophils % 0.7 %; Eosinophils % 2.9 %; HCT 45.3 % (40.0-50.0); HGB 15.3 g/dL (13.5-17.5); Immature Grans % 0.4 %; Lymphocytes % 15.8 %; MCH 28.9 pg (27.0-33.0); MCHC 33.8 % (32.0-36.0); MCV 86 fL (80-95); MPV 10.4 fL (8.0-11.0); Monocytes % 8.8 %; Neutrophils % 71.4 %; Platelet Count 237 10^3/uL (130-400); RBC 5.29 10^6/uL (4.36-5.78); RDW 13.1 % (11.8-14.1); RDW-SD 40.5 fL; WBC 8.33 10^3/uL (4.4-10.8)
[2023-10-29 15:28] LABS: ALT 18 U/L (16-63); AST 15 U/L (15-37); Albumin 3.5 g/dL (3.4-5.0); Alkaline Phosphatase 73 U/L (46-116); Anion Gap 6.9 mmol/L (3-11); BUN 18 mg/dL (7-18); Bilirubin, Total 0.52 mg/dL (0.2-1.0); CO2 32.1 mmol/L (21.0-32.0); CREATININE 0.9 mg/dL (0.70-1.30); Calcium 8.9 mg/dL (8.5-10.1); Chloride 105 mmol/L (98-107); Estimated GFR 89.07 (mL/min/1.73m2); Glucose 82 mg/dL (74-106); Potassium 3.8 mmol/L (3.5-5.1); Sodium 144 mmol/L (136-145); Total Protein 6.5 g/dL (6.4-8.2)
== END 2023-10-29 11:49 | disposition home or self-care (01) ==
LOC: NCHCN 11:48
PROVIDERS: PCP Student in an Organized Health Care Education/Training Program; Visit Provider Student in an Organized Health Care Education/Training Program
DX: M54.32 Sciatica, left side (principal); I10 Essential (primary) hypertension
CPT/HCPCS: 80053; 85025

== ENCOUNTER 2024-06-09 11:22 | Outpatient (CLI) | payer MEDICARE, BC, SELFPAY ==
--- NOTE | 2024-06-09 10:34 | DI.RAD_ITS ---
Exam(s) XR CHEST 2V PA LATERAL EXAM: XR CHEST 2V PA LATERAL CLINICAL HISTORY: Acute Cough R05.1 TECHNIQUE: 2D digital imaging was performed. Two views. COMPARISON: CR XR CHEST 2V PA LATERAL from 04/17/2023 FINDINGS: HEART: Normal size. Aorta: Not dilated. PULMONARY VASCULATURE: Normal. MEDIASTINUM: Unremarkable. LUNGS: Clear. PLEURAL SPACE: No pleural effusion or pneumothorax. BONE:Unremarkable for age. SOFT TISSUES: Unremarkable. IMPRESSION: No acute abnormality. DATA REPOSITORY: RADIATION DOSE DELIVERED:
== END 2024-06-09 11:42 ==
PROVIDERS: PCP Student in an Organized Health Care Education/Training Program; Visit Provider Student in an Organized Health Care Education/Training Program
DX: R05.1 Acute cough (principal)
CPT/HCPCS: 71046

== ENCOUNTER 2024-08-18 12:00 | Outpatient (CLI) | payer MEDICARE, BC, SELFPAY ==
--- NOTE | 2024-08-18 11:11 | DI.RAD_ITS ---
Exam(s) XR HIP LT COMPLETE AP PELVIS EXAM: XR HIP LT COMPLETE AP PELVIS CLINICAL HISTORY: PAIN LEFT HIP M25.552 NON-IMPROVEMENT W/ PT. TECHNIQUE: 2D digital imaging was performed. Two views. COMPARISON: No exams were available for comparison FINDINGS: BONES: No acute fracture is present. No bony destructive lesion is seen. Enthesophytes are noted at the iliac wings. JOINTS: No dislocation present. The SI joints and pubic symphysis are intact. Hip joint spaces are ma intained. There is mild acetabular spurring bilaterally. SOFT TISSUE: Normal. IMPRESSION: Mild degenerative changes. DATA REPOSITORY: RADIATION DOSE DELIVERED:
== END 2024-08-18 12:20 ==
LOC: DI 12:00
PROVIDERS: PCP Student in an Organized Health Care Education/Training Program; Visit Provider Student in an Organized Health Care Education/Training Program
DX: M25.552 Pain in left hip (principal)
CPT/HCPCS: 73502

== ENCOUNTER 2024-08-21 15:06 | Outpatient (REF) | payer MEDICARE, BC, SELFPAY ==
[2024-08-21 16:03] LABS: Anion Gap 6.1 mmol/L (3-11); BUN 16 mg/dL (7-18); CO2 30.9 mmol/L (21.0-32.0); CREATININE 0.9 mg/dL (0.70-1.30); Calcium 9.1 mg/dL (8.5-10.1); Chloride 106 mmol/L (98-107); Estimated GFR 88.51 (mL/min/1.73m2); Glucose 97 mg/dL (74-106); Potassium 3.7 mmol/L (3.5-5.1); Sodium 143 mmol/L (136-145); TSH (W/Ref FT4) 1.74 uIU/mL (0.36-3.74)
== END 2024-08-21 15:07 | disposition home or self-care (01) ==
LOC: NCHCN 15:06
PROVIDERS: PCP Student in an Organized Health Care Education/Training Program; Visit Provider Student in an Organized Health Care Education/Training Program
DX: I10 Essential (primary) hypertension (principal)
CPT/HCPCS: 80048; 83735; 84443

== ENCOUNTER 2025-03-03 11:15 | Outpatient (REF) | payer MEDICARE, BC, SELFPAY | END 2025-03-03 11:16 | disposition home or self-care (01) | LOC: NCHCN 11:15 | PROVIDERS: PCP Student in an Organized Health Care Education/Training Program; Visit Provider Student in an Organized Health Care Education/Training Program | DX: I10 Essential (primary) hypertension (principal) | CPT/HCPCS: 82043; 82570 ==